=== PATIENT | male | born 1975 | race Caucasian/White ===

== ENCOUNTER 2021-01-04 10:58 | Emergency (ER) | payer OTHER ==
[2021-01-04 11:37] LABS: BASOPHIL 0.6 % (0-2); HCT 47.4 % (42.0-52.0); HGB 16.9 g/dl (13.2-18.0); MCH 32.4 pg (25.0-31.0); MCHC 35.7 g/dL (32.0-36.0); MONOCYTE 7.1 % (0-12); MPV 9.3 fL (6.0-9.5); NEUTROPHIL 65.9 % (41-80); NRBC 0; PLT 214 K/uL (150-400); RBC 5.21 M/uL (4.70-6.00); RDW 12.3 % (11.5-14.0)
[2021-01-04 11:50] LABS: PROTHROMBIN TIME 12.5 SECONDS (11.4-13.6); PTT 25.4 SECONDS (22.2-34.7)
[2021-01-04 12:16] LABS: CREATININE 1.06 mg/dL (0.67-1.17); PRO-BNP 33 pg/mL (<125)
[2021-01-04 12:17] LABS: BILIRUBIN - TOTAL 0.7 mg/dL (0.2-1.0); FT4 (FREE T4) 0.97 ng/dL (0.76-1.46); GLOBULIN (CALCULATION) 3.3 g/dL; POTASSIUM 3.9 mmol/L (3.5-5.1); TOTAL PROTEIN 7.3 g/dL (6.4-8.2)
[2021-01-04] MEDS ORDERED: TOPROL XL25 MG PO (14:55)
[2021-01-04] MEDS ORDERED: ASPIRIN81 MG PO (14:57)
== END 2021-01-04 15:30 | disposition home or self-care (01) ==
LOC: FER 10:58
PROVIDERS: Emergency Medicine
DX: I48.0 Paroxysmal atrial fibrillation (principal)
CPT/HCPCS: 36415; 71045; 80053; 83880; 84439; 84443; 84484; 85025; 85610; 85730; 93005